=== PATIENT | female | born 1985 | race Caucasian/White ===

== ENCOUNTER 2022-10-09 00:05 | Observation (INO) ==
[2022-10-09] MEDS ORDERED: ONDANSETRON INJ 2 MG/ML 2 ML VIAL IV PRN ×2 (01:23→06:18)
[2022-10-09] MEDS ORDERED: MoRPHine SULFATE 4 MG/ML 1 ML CARP\\VIAL IV PRN ×2 (01:23→09:18)
[2022-10-09] MEDS ORDERED: ACETAMINOPHEN 1,000 MG/100 ML VIAL IV PRN (01:23)
[2022-10-09] MEDS ORDERED: LACTATED RINGER'S 1,000 ML IV SCH (01:30)
--- NOTE | 2022-10-09 01:40 | History & Physical Report ---
I have discussed this case with the surgical PA and seen the patient early this am. She was admitted with IV antibiotics but spiked a fever and has developed tachycardia. We will now proceed to the OR emergently for appendectomy due to new unfavorable clinical signs. Date of Service October 09, 2022 Assessment & Plan (1) Acute appendicitis: Plan: The patient has been accepted on transfer from [facility] by Dr. Satish Wong of [facility] general surgery. We will proceed as follows: N.p.o. status will be implemented Intravenous fluids will be initiated. I have ordered NSS 125 cc/h Analgesics will be provided--as needed intravenous morphine has been ordered along with as needed intravenous acetaminophen Antiemetics will be providedas needed Zofran has been initiated We will continue antibiotics in the form of Zosyn. As noted the patient did receive her most recent dose at [facility] on 11:21 PM on 10/08/2022 The patient is tentatively scheduled for appendectomy with Dr. Andersen the morning of 10/09/2022. She has been added to the operating room schedule. I discussed with the patient the operative procedure outlining the risks, benefits, and alternatives. I have also discussed the potential complications and expected postoperative course. She wishes to proceed. At the time of the patient's arrival and throughout the process of my interview the patient was noted to be hemodynamically stable. She was normotensive without tachycardia or fever. -The patient's history, physical exam findings, and above plan were discussed with my attending physician Dr. Andersen. Additional recommendations be forthcoming based on her clinical course as it unfolds, operative findings, and postoperative recovery We will use SCDs only for DVT prevention, no chemical means due to planned surgery The patient will be a level 1 full code The above plan was also discussed with the patient's who is present at bedside I spent approximately 1 hour and 10 minutes on this case. This included discussion with the patient and her , discussion with the attending physician, discussion with nursing staff, and coordinating care. Admission and Anticipated Discharge Date Admission Date: October 09, 2022 History of Present Illness Chief Complaint: Abdominal pain Primary Care Provider: Migel Pompa DO This is a 36-year-old female who presented to the emergency department at [facility] secondary to abdominal pain that started approximately 4 days ago. The patient initially felt that she had a stomach bug as she had diarrhea and vomiting. Over the ensuing 4 days her pain persisted. She does describe the pain as originating in the periumbilical area but now has largely shifted to the right lower quadrant. She does not report any palliative or provocative factors. She denies any radiation of the pain she denies any fevers but does have shakes and chills. The patient denies any prior abdominal surgeries. She notes that her last p.o. intake was at approximately 12:00 PM on 10/08/2022. In the emergency department at [facility] patient did have a CT scan of the abdomen pelvis that showed findings consistent with acute appendicitis. There is a small amount of extraluminal gas but there is no abscess. There is inflammatory stranding around the appendix along with some free fluid noted in the right lower quadrant. Laboratories performed at [place] included a COVID test which was negative. She did have a CBC her white blood cell count was elevated at 22.6. Her hemoglobin and hematocrit were 13.2 and 41.8. Platelet count was 295,000. A test was noted to be negative. A chemistry profile showed her sodium was 133 and potassium was 3.5. Both her BUN and creatinine were both within the normal range. Lactic acid level was 1.5. It is noteworthy to mention that the patient did receive antibiotics in the form of Zosyn while at [facility] with her most recent dose being administe red at approximately 11:21 PM on 10/08/2022. At the time of my visit the patient was noted to be afebrile and hemodynamically stable. She was noted to have some shakes and chills but was in no distress. Concerning past medical history the patient reports only seasonal allergies Concerning past surgical history the patient has had his wisdom teeth extraction, a right foot surgery, and a cyst removed from her lip Concerning allergies the patient says that she is allergic to Zithromax and she is unsure of the reaction. She is also allergic to tetracycline which causes a rash Concerning social history the patient is a non-smoker Concerning family history she denies a family history of premature coronary artery disease. Allergies Allergy/AdvReac Type Severity Reaction Status Date / Time erythromycin base Allergy Hives Verified 10/09/22 01:31 tetracycline Allergy Hives Verified 10/09/22 01:31 Review of Systems Constitutional: + chills; no fever Ear, Nose, Mouth, Throat: no hearing loss Respiratory: no cough and no dyspnea Cardiovascular: no chest pain Gastrointestinal: as per Subjective / HPI, + abdominal pain, + nausea, + vomiting and + diarrhea/loose stools Genitourinary: no dysuria Musculoskeletal: no back pain Integumentary: no rash Neurologic: no localized weakness Physical Exam Constitutional: WD/WN, vitals as above Eyes: no conjunctival abnormality ENMT: Ears: no hearing impairment and no external ear abnormality Mouth: no oropharynx abnormality Neck: trachea midline Respiratory: normal respiratory effort, lungs clear to auscultation Cardiovascular: Rate/Rhythm: regular rate and regular rhythm Vessels: dorsalis pedis pulses present and radial pulses present Gastrointestinal (Abdomen): Abdomen is soft and nondistended. It is nonrigid. I did not appreciate any masses. The patient did have pain with palpation in the right lower quadrant along with rebound tenderness noted. Musculoskeletal: No calf tenderness, feet are warm and well-perfused Skin: no rashes Neurologic: moves all extremities Psychiatric: A+Ox3, euthymic affect Results & Data Results & Data Vital Signs (Past 12 Hours) Vital Signs Temp Pulse Resp BP Pulse Ox O2 Del Method 10/09/22 01:18 36.8 C 89 16 117/70 97 Room Air Code Status & VTE Plan VTE Prophylaxis Plan VTE Prophylaxis will be ordered: Yes PG Care Time/CCT Total # of Minutes Spent Total Time Spent with Patient: Total time spent is greater than 50% in coordination of care (as documented) at patient's floor/unit and/or counseling patient: Coding Level of Care Code 24432 INT INP/OBS CARE 3/75MIN Diagnoses Acute appendicitis K35.80
[2022-10-09] MEDS ORDERED: PIPERACILLIN/TAZOBACTAM 4.5 GM in DEXTROSE 5% 100 ML IV ONE (01:45)
[2022-10-09] MEDS ORDERED: SODIUM CHLORIDE 0.9% 1000ML 1,000 ML IV SCH (02:15)
--- NOTE | 2022-10-09 05:53 | Communication Note ---
This was discussed with the PA, I agree with this assessment. Patient proceeding to the OR. Date of Service: October 09, 2022 Patient revisited at bedside at approximately 5:20 AM. Repeat vitals are being performed by the nursing staff. Blood pressure is now 99/63 and heart rate is 101. Respirations are 16 and nonlabored and pulse ox is 98% on room air. Patient's temperature is now 101.1. The patient does note continued right lower quadrant abdominal pain. Due to the fact that the patient is now spiked a temp and is slightly tachycardic I have contacted Dr. Andersen. She feels that we should proceed to the OR as soon as possible. I contacted the clinical coordinator in the OR staff is currently being called in to perform the surgery. Repeat labs ordered for 6:00 AM. I have contacted the lab and asked them to draw these labs now. I discussed with the patient and her the above and they again wished to proceed.
[2022-10-09 06:02] LABS: Basophils # (auto) 0.06 K/uL (0-0.2); Basophils % (auto) 0.3 %; Eosinophils # (auto) 0.01 K/uL (0-0.50); Eosinophils % (auto) 0.1 %; Hematocrit (blood only) 33.3 % (37.0-47.0); Hemoglobin 11.1 g/dl (12.0-16.0); Immature Granulocytes # (auto) 0.15 K/uL (0.01-0.20); Immature Granulocytes % (auto) 0.8 %; Lymphocytes # (auto) 1.41 K/uL (1.2-3.4); Lymphocytes % (auto) 7.8 %; Mean Corpuscular Hemoglobin 31.6 pg (25.0-34.0); Mean Corpuscular Hgb Conc 33.3 g/dL (32.0-36.0); Mean Corpuscular Volume 94.9 fL (80.0-100.0); Mean Platelet Volume 11.8 fL (9.4-12.4); Monocytes # (auto) 1.15 K/uL (0.11-0.59); Monocytes % (auto) 6.4 %; Neutrophils # (auto) 15.19 K/uL (1.40-6.50); Neutrophils % (auto) 84.6 %; Platelet Count 208 K/uL (130-400); RDW Coefficient of Variation 13.8 % (11.5-14.5); RDW Standard Deviation 47.8 fL (36.4-46.3); Red Blood Count 3.51 M/uL (4.20-5.40); White Blood Count 17.97 K/ul (4.8-10.8)
[2022-10-09 06:06] LABS: BUN Creatinine Ratio 12.1 (10-20); Calcium 8.5 mg/dl (8.6-10.3); Creatinine Clr Calc Pharmacy 103.7 ml/min; Est GFR (African American) 133.6 ml/min; Est GFR (Non-African American) 115.3 ml/min; Potassium 3.7 mmol/L (3.5-5.1)
[2022-10-09] MEDS ORDERED: fentaNYL citrate PF 100 MCG/2 ML VIAL IV PRN (06:18)
[2022-10-09] MEDS ORDERED: ATROPINE SULFATE 0.1 MG/ML 10ML SYR IV PRN (06:18)
[2022-10-09] MEDS ORDERED: ePHEDrine sulfate 50 MG/ML AMP IV PRN (06:18)
--- NOTE | 2022-10-09 06:18 | Anesthesiology Consultation ---
Date of Service October 09, 2022 Assessment & Plan Chart Review Chart Review: entry analyst initiated History Surgery Operation Date: 10/09/22 06:05 Proposed Procedures p Laparoscopic Appendectomy - Leti Yanes DO Height/Weight Height: 5 ft 4 in Weight: 59.534 kg Allergies Allergy/AdvReac Type Severity Reaction Status Date / Time erythromycin base Allergy Hives Verified 10/09/22 01:31 tetracycline Allergy Hives Verified 10/09/22 01:31 Medications Active Medications Generic Name Dose Route Start Last Admin Trade Name Freq PRN Reason Stop Dose Admin Sodium Chloride 1,000 mls @ 125 mls/hr 10/09/22 02:15 10/09/22 02:20 Nss 1000ml IV 11/08/22 02:14 125 mls/hr .Q8H YONG Administration NPO Date Last Intake of Fluids: 10/08/22 Social History Smoking Status: Never smoker Hx Alcohol Use: Yes alcohol intake frequency: holidays/special occasions only Hx Substance Use: No Physical Exam Vital Signs Last Vital Signs Temp 101.1 F H 10/09/22 05:22 Pulse 101 H 10/09/22 05:22 Resp 16 10/09/22 05:22 BP 99/63 L 10/09/22 05:22 Pulse Ox 98 10/09/22 05:22 O2 Del Method Room Air 10/09/22 05:22 Testing Laboratory Results 10/09/22 05:32 10/09/22 05:32
[2022-10-09] MEDS ORDERED: BUPIVACAINE/EPINEPHRINE 0.5% MPF 1:200,000 30 ML VIAL ONE (06:29)
[2022-10-09] MEDS ORDERED: PROPOFOL IV EMULSION 10 MG/ML 20 ML VIAL IV ONE (06:46)
[2022-10-09] MEDS ORDERED: MIDAZOLAM HCL 1 MG/ML 2ML VIAL ONE (06:46)
[2022-10-09] MEDS ORDERED: ONDANSETRON INJ 2 MG/ML 2 ML VIAL ONE (06:46)
[2022-10-09] MEDS ORDERED: fentaNYL citrate PF 100 MCG/2 ML VIAL ONE ×2 (06:46→07:27)
[2022-10-09] MEDS ORDERED: LIDOCAINE 2% 2 ML VIAL/AMP(20MG/ML) INFIL ONE (06:46)
[2022-10-09] MEDS ORDERED: DEXAMETHASONE SOD INJ 4 MG/ML VIAL ONE (07:39)
[2022-10-09] MEDS ORDERED: ROCURONIUM BROMIDE 10 MG/ML 5 ML VIAL IV ONE (07:39)
[2022-10-09] MEDS ORDERED: SUGAMMADEX SODIUM 200 MG/2 ML VIAL IV ONE (07:39)
[2022-10-09] MEDS ORDERED: PHENYLEPHRINE 100MCG/ML 5ML SYR ONE (08:01)
[2022-10-09] MEDS ORDERED: GLYCOPYRROLATE 0.2 MG/ML VIAL ONE (08:05)
[2022-10-09] MEDS ORDERED: NEOSTIGMINE METHYLSULFATE 1 MG/ML 10ML VIAL ONE (08:05)
--- NOTE | 2022-10-09 08:22 | Post Operative Brief Note ---
PG Immediate Post Op with CF Date of Surgery October 09, 2022 Pre & Post Diagnosis Operation Date: 10/09/22 06:05 Pre-Op Diagnosis: appendicitis Post-Op Diagnosis: appendicitis I identified the patient and participated in the time-out.: Yes Procedure Operation Date: 10/09/22 06:05 Actual Procedures p Laparoscopic Appendectomy(Not Applicable) - Leti Yanes DO Surgeon Leti Yanes DO Security Technician ARGENIS Hernandez Estimated Blood Loss 5 Findings Consistent with Post-Op Diagnosis Perforated appendix with periappendiceal abscess Specimens Specimen Description: A. appendix culture #1 cedrick appendiceal abscess Drains Jovel Catheter and Richard-Sin Drain Anesthesia Type General Complications None
--- NOTE | 2022-10-09 08:27 | Operative Report ---
PG Post Operative Report Pre & Post Diagnosis Operation Date: 10/09/22 06:05 Pre-Op Diagnosis: appendicitis Post-Op Diagnosis: Perforated appendicitis with periappendiceal abscess formation I identified the patient and participated in the time-out.: Yes Procedure Operation Date: 10/09/22 06:05 Actual Procedures p Laparoscopic Appendectomy(Not Applicable) - Leti Yanes DO Surgeon Leti Yanes DO Laundry Aide ARGENIS Hernandez Estimated Blood Loss 5 Findings Consistent with Post-Op Diagnosis Perforated appendix with periappendiceal abscess Specimens Appendix Drains 10 Indonesian TWIN Anesthesia Type General Complications None Indications Acute appendicitis Description of Procedure The patient was appropriately identified and confirmed for laparoscopic appendectomy. The patient was brought back to the operating room and placed on the operating room table in supine position. She was connected to cardiac and O2 monitoring. General anesthesia was administered and the patient was intubated. The patient was noted to be febrile and was given a dose of Tylenol. She is on scheduled antibiotics, last dose was confirmed in the OR. A Jovel catheter was inserted. The abdomen was prepped and draped in typical sterile fashion. A timeout was conducted. Local anesthetic was injected into the skin and subcutaneous tissues at the supraumbilical region. A small stab incision was made at this location. The fascia was elevated using a towel clamp and a Veress needle was inserted into the intra-abdominal space. This insertion was confirmed using the saline drop test. CO2 insufflation was initiated and pneumoperitoneum was achieved to a goal pressure of 15 mmHg. A 5 mm trocar was inserted. A 5 mm laparoscope was used to inspect the intra-abdominal space. No injury caused by the insertion of the Veress needle or initial 5 mm trocar was noted. There was serosanguineous fluid at the paracolic gutter adjacent to the cecum. After an anesthetizing the skin and subcutaneous tissues a 5 mm trocar was made after stab incision at the supra pubic area. Similarly a 12 mm trocar was used at the left lower quadrant. The trocars were inserted under direct visualization. There was no injury to intra-abdominal contents during the insertion of the additional trocars. Attention was then turned to the right lower quadrant. The patient was positioned in left side down in Trendelenburg. The cecum was noted extending into the pelvis. This was retracted back and the base of the appendix was ident ified. The appendix was adhered to the retrocolic area and was gently dissected away using blunt suction dissection. Upon approaching the midportion of the appendix there was notable inflammation, induration and dilation. As this area was teased away an abscess pocket was identified. Fluid was collected for culture. All of the fluid was suctioned from the abscess pocket. The appendix was gently teased away from the cecum using blunt dissection. The mesoappendix was obliterated at the base and a clear transection point was identified at the base of the cecum. A blue loaded Endo OLEG was used to ligate and transect the appendix from the cecum. 5 mm clip laundry aide was used to control what appeared to be the appendiceal artery using 2 clips proximally. The mesoappendix was completely dissected away from the appendix using a harmonic scalpel. The area was heavily examined for hemostasis. No active bleeding was noted. There was a very slight weeping of fibrinous tissue along the right paracolic gutter. The area was then irrigated with a liter of normal saline and this was suctioned away from the right paracolic gutter and pelvis. After thorough inspection again for hemostasis, there was no bleeding noted. The staple line was inspected and was hemostatic. The appendix was placed in an Endo Catch bag and removed. The appendix was sent to pathology for further analysis. A 10 Indonesian TWIN drain was inserted along the right paracolic gutter extending down into the pelvis. The OR table was returned to the neutral position and omentum was used to cover the area. CO2 insufflation was discontinued. Pneumoperitoneum was evacuated through trocar sites. All trocars and instruments were removed. The left lower quadrant incision was closed at the level of the fascia using 0 Vicryl. The 10 Indonesian TWIN drain was secured in place at the supra and the local port site. The skin was approximated with 4-0 Vicryl suture at the left lower quadrant and supraumbilical incisions. Dermabond was used to cover the skin incisions. The patient tolerated the procedure well. She was awakened from anesthesia, extubated and transferred to recovery in stable condition. I attest to the content of the Intraoperative Record and any orders documented therein. Any exceptions are noted below.
--- NOTE | 2022-10-09 09:11 | Anesthesiology Progress Note ---
Date of Service October 09, 2022 Anesthesia Post Procedure Vital Signs Vital Signs: Temp Pulse Pulse Resp BP Pulse Ox O2 Del Method 10/09/22 09:05 37.3 C 85 20 103/62 96 Room Air 10/09/22 08:55 89 21 104/61 100 Room Air 10/09/22 08:45 102 H 19 108/64 100 Oxymask 10/09/22 08:34 36.7 C 103 H 17 108/63 100 Oxymask 10/09/22 05:22 38.4 C H 101 H 16 99/63 L 98 Room Air 10/09/22 01:18 36.8 C 89 16 117/70 97 Room Air O2 Flow Rate 10/09/22 09:05 10/09/22 08:55 10/09/22 08:45 5 10/09/22 08:34 8 10/09/22 05:22 10/09/22 01:18 Transfer of Care Handoff Completed per policy Notes Mental Status: alert / awake / arousable and participated in evaluation Patient Amnestic to Procedure: Yes Nausea / Vomiting: adequately controlled Pain: adequately controlled Airway Patency, RR, SpO2: stable & adequate BP & HR: stable & adequate Hydration State: stable & adequate Anesthetic Complications: no major complications apparent and Pt Satisfied with anesthetic care
[2022-10-09] MEDS ORDERED: MoRPHine SULFATE 2 MG/ML CARP IV PRN (09:18)
[2022-10-09] MEDS ORDERED: oxyCODONE HCL IR 5 MG TAB (IMMEDIATE RELEASE) PO PRN ×2 (09:18)
[2022-10-09] MEDS: LACTATED RINGER'S 1,000 ML IV SCH ×2 (10:40→15:41)
[2022-10-09] MEDS: PIPERACILLIN/TAZOBACTAM 4.5 GM in DEXTROSE 5% 100 ML IV SCH ×2 (10:40→17:32)
[2022-10-09] MEDS ORDERED: Nursing to Pharmacy Communication SCH (14:00)
[2022-10-10] MEDS: LACTATED RINGER'S 1,000 ML IV SCH ×2 (01:49→12:28)
[2022-10-10] MEDS: PIPERACILLIN/TAZOBACTAM 4.5 GM in DEXTROSE 5% 100 ML IV SCH ×3 (02:04→18:09)
[2022-10-10 06:56] LABS: Basophils # (auto) 0.03 K/uL (0-0.2); Basophils % (auto) 0.2 %; Hematocrit (blood only) 31.2 % (37.0-47.0); Hemoglobin 10.7 g/dl (12.0-16.0); Immature Granulocytes # (auto) 0.11 K/uL (0.01-0.20); Immature Granulocytes % (auto) 0.6 %; Lymphocytes # (auto) 1.53 K/uL (1.2-3.4); Lymphocytes % (auto) 7.7 %; Mean Corpuscular Hemoglobin 31.8 pg (25.0-34.0); Mean Corpuscular Hgb Conc 34.3 g/dL (32.0-36.0); Mean Corpuscular Volume 92.6 fL (80.0-100.0); Mean Platelet Volume 11.8 fL (9.4-12.4); Monocytes # (auto) 0.93 K/uL (0.11-0.59); Monocytes % (auto) 4.7 %; Neutrophils # (auto) 17.19 K/uL (1.40-6.50); Neutrophils % (auto) 86.8 %; Platelet Count 232 K/uL (130-400); RDW Coefficient of Variation 13.7 % (11.5-14.5); RDW Standard Deviation 46.9 fL (36.4-46.3); Red Blood Count 3.37 M/uL (4.20-5.40); White Blood Count 19.79 K/ul (4.8-10.8)
[2022-10-10 07:23] LABS: BUN Creatinine Ratio 16.3 (10-20); Calcium 8.7 mg/dl (8.6-10.3); Creatinine Clr Calc Pharmacy 139.7 ml/min; Est GFR (African American) 147.3 ml/min; Est GFR (Non-African American) 127.1 ml/min; Potassium 3.6 mmol/L (3.5-5.1)
--- NOTE | 2022-10-10 09:23 | Surgery Progress Note ---
I have seen the patient with the surgical PA today for evaluation and planning. I agree with what is written. Date of Service October 10, 2022 Assessment & Plan (1) Acute appendicitis: Plan: POD#1 laparoscopic appendectomy for perforated appendicitis WBC 19 (17), Hbg 10.7 (11). Vitals stable, afebrile Tolerating clears, no n/v. passing gas. pain controlled on current regimen TWIN drain seroangenous, keep in place likely will stay in at discharge Continue IV abx while in house, will transition to po abx for total of 14 days upon discharge Advance to full liquids, consider low fiber tomorrow if doing well F/u in clinic with Dr. Yanes in 1 week for drain removal and check up Admission and Anticipated Discharge Date Admission Date: October 09, 2022 Subjective Patient is feeling well. Tolerating clears without nausea/vomiting. Passing flatus. Has not required any narcotics of recent for pain. A little discomfort around TWIN drain site and with getting out of bed, but tolerable. Review of Systems Constitutional: no fever Gastrointestinal: some pain around TWIN site Physical Exam Physical Exam: awake/alert Constitutional: well developed and well nourished; no acute distress Respiratory: normal respiratory effort Cardiovascular: Rate/Rhythm: regular rate Gastrointestinal (Abdomen): Inspection/Auscultation: + abdominal surgical incision (c/d/i no signs of infections with skin glue on top) and + abdominal surgical drain present (serosangenous, 40cc over last 12 hours); abdomen not distended Percussion/Palpation: + abdomen tender (expected cedrick incisional discomfort) and abdomen soft Results & Data Vital Signs (Past 12 Hours) Vital Signs Temp Pulse Pulse Resp BP Pulse Ox O2 Del Method 10/10/22 07:45 Room Air 10/10/22 07:54 36.6 C 61 16 106/70 100 Room Air 10/10/22 02:23 36.5 C 60 16 106/70 98 Room Air 10/09/22 22:22 36.6 C 60 16 116/78 98 Room Air PG Care Time/CCT Total # of Minutes Spent Total Time Spent with Patient: Total time spent is greater than 50% in coordination of care (as documented) at patient's floor/unit and/or counseling patient: Coding Level of Care Code 33421 Post Operative Follow-Up Diagnoses Acute appendicitis K35.80
[2022-10-11] MEDS: PIPERACILLIN/TAZOBACTAM 4.5 GM in DEXTROSE 5% 100 ML IV SCH ×2 (01:53→10:05)
[2022-10-11] MEDS: LACTATED RINGER'S 1,000 ML IV SCH (01:53)
[2022-10-11 06:50] LABS: BUN Creatinine Ratio 10.2 (10-20); Calcium 8.3 mg/dl (8.6-10.3); Est GFR (African American) 138.6 ml/min; Est GFR (Non-African American) 119.6 ml/min; Potassium 3.1 mmol/L (3.5-5.1)
[2022-10-11 07:11] LABS: Basophils # (auto) 0.05 K/uL (0-0.2); Basophils % (auto) 0.5 %; Eosinophils # (auto) 0.04 K/uL (0-0.50); Eosinophils % (auto) 0.4 %; Hematocrit (blood only) 32.6 % (37.0-47.0); Hemoglobin 10.8 g/dl (12.0-16.0); Immature Granulocytes # (auto) 0.03 K/uL (0.01-0.20); Immature Granulocytes % (auto) 0.3 %; Lymphocytes # (auto) 2.71 K/uL (1.2-3.4); Lymphocytes % (auto) 28.7 %; Mean Corpuscular Hemoglobin 30.9 pg (25.0-34.0); Mean Corpuscular Hgb Conc 33.1 g/dL (32.0-36.0); Mean Corpuscular Volume 93.4 fL (80.0-100.0); Mean Platelet Volume 12.1 fL (9.4-12.4); Monocytes % (auto) 6.4 %; Neutrophils % (auto) 63.7 %; Platelet Count 245 K/uL (130-400); RDW Coefficient of Variation 13.9 % (11.5-14.5); RDW Standard Deviation 47.5 fL (36.4-46.3); Red Blood Count 3.49 M/uL (4.20-5.40); White Blood Count 9.43 K/ul (4.8-10.8)
--- NOTE | 2022-10-11 10:10 | Surgery Progress Note ---
Date of Service October 11, 2022 Assessment & Plan (1) Acute appendicitis: Plan: POD#2 laparoscopic appendectomy for perforated appendicitis WBC 9.43. Vitals stable, afebrile Tolerating clears, no n/v. passing gas. pain controlled on current regimen TWIN drain serous, keep in place at discharge. She will complete 14 days of PO Augmentin at home- sent to pharmacy. Will advance to low fiber diet. If she tolerates, ok for discharge later this afternoon. Discharge instructions reviewed. Return precautions reviewed. F/u in clinic with Dr. Yanes in 1 week for drain removal and check up Admission and Anticipated Discharge Date Admission Date: October 09, 2022 Supervising Physician Co-Signing Physician Notes Patient seen and examined, agree with above. Status post laparoscopic appendectomy for perforated appendicitis, doing better, afebrile. Abdomen soft, nontender, incisions without infection. Drain is serous fluid. WBC normalized. Will advance to regular diet, potential discharge this afternoon or tomorrow on antibiotics, will keep drain in place. Follow-up with Dr. Keyana Wong next week. Activity restrictions, wound care instructions, return precautions given. Subjective Patient is feeling well this AM. Tolerating full liquid diet without n ausea/vomiting. Passing flatus. Feels that she would like to try to advance her diet. Review of Systems Constitutional: no fever and no chills Respiratory: no cough, no chest congestion and no dyspnea Physical Exam Physical Exam: awake/alert Constitutional: well developed and well nourished; no acute distress Respiratory: normal respiratory effort Cardiovascular: Rate/Rhythm: regular rate Gastrointestinal (Abdomen): Inspection/Auscultation: + abdominal surgical incision (c/d/i no signs of infections with skin glue on top) and + abdominal surgical drain present (serous drainage); abdomen not distended P ercussion/Palpation: + abdomen tender (expected cedrick incisional discomfort) and abdomen soft Results & Data Vital Signs (Past 12 Hours) Vital Signs Temp Pulse Resp BP Pulse Ox O2 Del Method 10/11/22 07:46 36.7 C 63 18 104/68 99 Room Air PG Care Time/CCT Total # of Minutes Spent Total Time Spent with Patient: Total time spent is greater than 50% in coordination of care (as documented) at patient's floor/unit and/or counseling patient: Coding Level of Care Code 55281 Post Operative Follow-Up Diagnoses Acute appendicitis K35.80
--- NOTE | 2022-10-13 14:34 | Discharge Summary ---
This case was discussed with the surgical PA and I agreed with this plan. Date of Service October 11, 2022 Admission HPI Per Admitting Provider This is a 36-year-old female who presented to the emergency department at [facility] secondary to abdominal pain that started approximately 4 days ago. The patient initially felt that she had a stomach bug as she had diarrhea and vomiting. Over the ensuing 4 days her pain persisted. She does describe the pain as originating in the periumbilical area but now has largely shifted to the right lower quadrant. She does not report any palliative or provocative factors. She denies any radiation of the pain she denies any fevers but does have shakes and chills. The patient denies any prior abdominal surgeries. She notes that her last p.o. intake was at approximately 12:00 PM on 10/08/2022. In the emergency department at [facility] patient did have a CT scan of the abdomen pelvis that showed findings consistent with acute appendicitis. There is a small amount of extraluminal gas but there is no abscess. There is inflammatory stranding around the appendix along with some free fluid noted in the right lower quadrant. Laboratories performed at [facility] included a COVID test which was negative. She did have a CBC her white blood cell count was elevated at 22.6. Her hemoglobin and hematocrit were 13.2 and 41.8. Platelet count was 295,000. A test was noted to be negative. A chemistry p rofile showed her sodium was 133 and potassium was 3.5. Both her BUN and creatinine were both within the normal range. Lactic acid level was 1.5. It is noteworthy to mention that the patient did receive antibiotics in the form of Zosyn while at [facility] with her most recent dose being administered at approximately 11:21 PM on 10/08/2022. At the time of my visit the patient was noted to be afebrile and hemodynamically stable. She was noted to have some shakes and chills but was in no distress. Concerning past medical history the patient reports only seasonal allergies Concerning past surgical history the patient has had his wisdom teeth extraction, a right foot surgery, and a cyst removed from her lip Concerning allergies the patient says that she is allergic to Zithromax and she is unsure of the reaction. She is also allergic to tetracycline which causes a rash Concerning social history the patient is a non-smoker Concerning family history she denies a family history of premature coronary artery disease. Principal Diagnosis perforated acute appendicitis Discharge Exam awake/alert Constitutional no acute distress Respiratory normal respiratory effort Gastrointestinal (Abdomen) Inspection/Auscultation: + abdominal surgical incision (c/d/i with skin glue, no infection) and + abdominal surgical drain present (serosangenous) Percussion/Palpation: + abdomen tender (expected cedrick incisional discomfort) and abdomen soft Discharge Data Allergies Allergy/AdvReac Type Severity Reaction Status Date / Time erythromycin base Allergy Hives Verified 10/09/22 01:31 tetracycline Allergy Hives Verified 10/09/22 01:31 Procedures Performed Operation Date: 10/09/22 06:05 Actual Procedures p Laparoscopic Appendectomy(Not Applicable) - Leti Yanes, Hospital Course (1) Acute perforated appendicitis: This is a 36y F who presented to the [facility] ED on 10/09/22 transferred from [facility] with findings of acute appendicitis. She was kept NPO with IVF and remained on IV Abx. She was booked for the OR on 10/09/[address] Satish Wong and underwent a laparoscopic appendectomy. Intraop the appendix was found to be perforated. A TWIN drain was left in place. The patient tolerated the procedure well, see operative report for full details. POD#1 WBC 19 (17) she remained on IV zosyn. Diet advanced to clears then to fulls. Pain controlled on po and IV regimen. TWIN drain serosang. On POD#2 WBC downtrended to 9 and she remained afebrile. Diet advanced to low fiber without issues. TWIN drain remained serosang. She was deemed stable for discharge to home. Abx transitioned to a course of oral to complete. She was instructed to follow up in clinic within 1 week for check up and drain removal. Total Time Total Time Spent Total Time Spent (In Minutes): 15 Discharge Plan Discharge Items Patient Disposition: Home - Self-Care Reason For Visit: APPENDICITIS Discharge Diagnosis: laparoscopic appendectomy Activity: Per Instructions section Lifting: No more than 10 pounds Bathing Comment: may shower; no soaking in tubs/pools Exercise/Sports: Wait until after follow-up appointment Driving/Machine Use: no driving while taking narcotics for pain Non-emergency contact: Surgeon Call non-emergency contact if: you have any medication questions, your symptoms worsen, you have a fever, your temperature is above 101.5, your wound has increased redness, your wound has increased drainage and your wound pain has increased Follow-up/Referrals: Migel Pompa DO [Primary Care Provider] - Leti Yanes DO [Physician] - 10/21/22 10:15 am (Please call to schedule follow up in clinic within 2 weeks) Diet: Regular Addtl Attending Provider Instructions: You may purchase Tylenol and/or Ibuprofen over the counter if needed for additional pain control over the next few days. Take per manufacturers instructions Please care for your surgical drain as you have been instructed prior to discharge from the hospital. Empty drain 2-3x/daily and record output. Keep drain to bulb suction. Once drain <30cc/day over 2 days may call to consider removal in the office. Keep a dry dressing over drain site and change daily with dry gauze and medical tape. Please complete the full course of antibiotic prescribed to you Pending Studies at Discharge: Yes Studies:: surgical pathology Stand-Alone Forms: [facility], Smoking Cessation Medications and DC Order Prescriptions: New oxycodone 5 mg tablet 5 - 10 mg PO .[id number] PRN (Reason: pain, for initial therapy, max 6 tabs per day) Qty: 15 0RF amoxicillin-pot clavulanate 875-125 mg tablet 1 tab PO BID 10 Days Qty: 20 0RF amoxicillin-pot clavulanate 875-125 mg tablet 1 tab PO Q12H 10 Days Qty: 20 0RF Discharge Orders: Discharge Order (Routine); Ordered 10/11/22 Ordered By: Tamiko Teresa/Other Patient Handouts: Richard Sin Drain Tube Dc, Post Op Drain Emptying Steps Admission Data Admit Date/Time: 10/09/22 00:05 Attending Provider: Leti Yanes Admit Provider: Leti Yanes Primary Care Provider: Migel Pompa Other Interventions: Discharge Summary Assessment (RN) Last Done: 10/11/22 14:01 Coding Level of Care Code 91674 IN/OBS DISCH 30 MIN/LESS Diagnoses Acute perforated appendicitis K35.32
== END 2022-10-11 14:44 | disposition home or self-care (01) | DRG 340 ==
LOC: INTOOBSV 00:05 → 3E 00:05